=== PATIENT | male | born 1955 | race Caucasian/White ===

== ENCOUNTER → 2017-01-10 | Outpatient (REF) ==
--- NOTE | 2017-01-11 06:10 | REP ---
Clinical: Pain and disability. Technique: AP, lateral, coned-down views of the lumbosacral spine. Comparison: None. Findings: There is a chronic compression fracture at L2 with posterior fixation spanning L1 to L3. Alignment and lordosis maintained. Moderate to advanced multilevel degenerative changes are appreciated throughout the remainder of the visualized lower thoracic and lumbosacral spine including endplate sclerosis, marginal spurring, hypertrophic facet changes and disc space narrowing. Impression: Chronic compression deformity and postoperative changes. Alignment and lordosis maintained without acute fracture. Moderate to advanced multilevel degenerative changes. Signed by Uday Matias MD 01/11/2017 06:01 A
== END ==
LOC: M SMT 12:03
PROVIDERS: ATTEND Internal Medicine
DX: Z02.71 Encounter for disability determination (principal)